=== PATIENT | male | born 1980 | race Caucasian/White ===

== ENCOUNTER 2017-02-17 03:03 | Emergency (ER) | payer SELFPAY ==
[2017-02-17 03:13] VITALS: BP 135/89
[2017-02-17] MEDS ORDERED: Sodium Chloride 0.9% 5 ML Syringe FLUSH PRN (03:23)
--- NOTE | 2017-02-17 04:14 | EDM.PDOC ---
ED HPI GENERAL MEDICAL PROBLEM - General Chief Complaint: Flank Pain Stated Complaint: R FLANK PAIN Time Seen by Provider: 02/17/17 03:43 Source of Information: Reports: Patient History Limitations: Reports: No Limitations - History of Present Illness INITIAL COMMENTS - FREE TEXT/NARRATIVE: Patient presents with pain in right low back/flank for 5 hours that comes and goes frequently. It last a few minutes usually and goes completely away between episodes. He's never had this before and denies unusual heavy lifting or activities. He does do quite a bit of routine lifting at work. He smokes but denies marijuana or other drug use. He says he had Hepatitis A six months ago but thinks it's gone now. - Related Data Allergies Allergy/AdvReac Type Severity Reaction Status Date / Time No Known Drug Allergies Allergy Cannot Verified 02/17/17 03:06 Remember Home Meds: Home Meds . [No Known Home Meds] 02/17/17 [History] Social & Family History - Tobacco Use Smoking Status *Q: Current Every Day Smoker Years of Tobacco use: 20 Packs/Tins Daily: 0.5 Second Hand Smoke Exposure: Yes - Caffeine Use Caffeine Use: Reports: Soda - Alcohol Use Date of Last Drink: 02/16/17 Time of Last Drink: 22:30 - Recreational Drug Use Recreational Drug Use: No ED ROS GENERAL - Review of Systems Review Of Systems: See Below Constitutional: Denies: Fever, Chills HEENT: Denies: Ear Pain, Throat Pain Respiratory: Reports: Cough (chronic dry cough from smoking). Denies: Shortness of Breath Cardiovascular: Denies: Chest Pain GI/Abdominal: Reports: Vomiting (occasionally over last two weeks; last was 18 hours ago). Denies: Abdominal Pain, Constipation, Diarrhea : Denies: Dysuria Musculoskeletal: Reports: No Symptoms Skin: Denies: Cyanosis, Jaundice, Mottled, Pallor, Diaphoresis Neurological: Denies: Confusion, Dizziness, Syncope Psychiatric: Denies: Agitation, Anxiety, Confusion ED EXAM,LOWER BACK PAIN/INJURY - Physical Exam Exam: See Below Exam Limited By: No Limitations General Appearance: Alert, WD/WN, No Apparent Distress Eye Exam: Bilateral Eye: EOMI, Normal Inspection, PERRL Ears: Normal External Exam, Hearing Grossly Normal Nose: Normal Inspection, No Blood Throat/Mouth: Normal Lips, Normal Oropharynx, Normal Voice, No Airway Compromise. No: Normal Teeth (very poor dentition with numerous partially missing teeth) Head: Atraumatic, Normocephalic Neck: Normal Inspection, Supple, Non-Tender, Full Range of Motion Respiratory/Chest: No Respiratory Distress, Lungs Clear, Normal Breath Sounds Cardiovascular: Normal Peripheral Pulses, Regular Rate, Rhythm, No Murmur GI/Abdominal: Soft, Non-Tender, No Organomegaly, Abnormal Bowel Sounds (a little hyperactive). No: Distended, Guarding, Rigid Back Exam: CVA Tenderness (R) (Palpation is tender quite localized to what seems to be superficial muscle slightly inferior but adjacent to posterior right ribcage. This is lateral to paraspinal musculature and seems more superficial than any underlying organs. Nothing unusual evident on the skin.). No: CVA Tenderness (L), Muscle Spasm, Paraspinal Tenderness, Vertebral Tenderness Extremities: Normal Inspection, Normal Range of Motion, No Pedal Edema Neurological: Alert, Normal Gait, No Motor/Sensory Deficits, Oriented x 3 Psychiatric: Anxious Skin Exam: Warm, Dry, Intact, Normal Color, No Rash Course - Vital Signs Last Recorded V/S: Last Vital Signs Temp 98.5 F 02/17/17 03:08 Pulse 85 02/17/17 03:08 Resp 20 02/17/17 03:08 BP 135/89 02/17/17 03:08 Pulse Ox 97 02/17/17 03:08 - Orders/Labs/Meds Orders: Active Orders 24 hr Category Date Time Status BASIC METABOLIC PANEL,BMP [CHEM] Stat Lab 02/17/17 03:22 Ordered CBC WITH AUTO DIFF [HEME] Stat Lab 02/17/17 04:06 Ordered UA W/MICROSCOPIC [URIN] Stat Lab 02/17/17 03:22 Ordered Sodium Chloride 0.9% [Syrex Flush] Med 02/17/17 03:23 Active 5 ml FLUSH Q8HR PRN Saline Lock Insert [OM.PC] Routine Oth 02/17/17 03:23 Ordered Medication Orders Sodium Chloride (Syrex Flush) 5 ml FLUSH Q8HR PRN PRN Reason: Keep Vein Open Meds: Medications Generic Name Dose Route Start Last Admin Trade Name Freq PRN Reason Stop Dose Admin Sodium Chloride 5 ml 02/17/17 03:23 Syrex Flush FLUSH Q8HR PRN Keep Vein Open - Re-Assessments/Exams Free Text/Narrative Re-Assessment/Exam: 02/17/17 04:58 CBC shows elevated lymphocytes in the differential which may be a result of a viral infection with his recent vomiting. He denies any other known viruses recently. Discussed findings and treatment plan. Pt doesn't feel he needs anything for pain management. Pt discharged in stable condition. Departure - Departure Time of Disposition: 04:54 Disposition: Home, Self-Care 01 Condition: Good Clinical Impression: Low back pain Qualifiers: Chronicity: acute Back pain laterality: right Sciatica presence: without sciatica Qualified Code(s): M54.5 - Low back pain - Discharge Information Forms: ED Department Discharge Additional Instructions: 1. Drink 8 cups of water daily and try to avoid activities that aggravate the back pain. 2. You may use Tylenol or Ibuprofen as needed. 3. Follow up with your PCP in a week to recheck CBC lab to see if lymphocytes remain elevated. 4. If worsening follow up sooner with PCP vs ER. - My Orders Last 24 Hours: My Active Orders 02/17/17 03:22 BASIC METABOLIC PANEL,BMP [CHEM] Stat UA W/MICROSCOPIC [URIN] Stat 02/17/17 03:23 Sodium Chloride 0.9% [Syrex Flush] 5 ml FLUSH Q8HR PRN Saline Lock Insert [OM.PC] Routine 02/17/17 04:06 CBC WITH AUTO DIFF [HEME] Stat - Assessment/Plan Last 24 Hours: My Active Orders 02/17/17 03:22 BASIC METABOLIC PANEL,BMP [CHEM] Stat UA W/MICROSCOPIC [URIN] Stat 02/17/17 03:23 Sodium Chloride 0.9% [Syrex Flush] 5 ml FLUSH Q8HR PRN Saline Lock Insert [OM.PC] Routine 02/17/17 04:06 CBC WITH AUTO DIFF [HEME] Stat
[2017-02-17] MEDS ORDERED: Sodium Chloride 0.9% 1,000 ML IV ONE (04:23)
[2017-02-17 04:38] LABS: CHLORIDE,CL 103 mmol/L (98-115); SODIUM,NA 142 mmol/L (136-145)
== END 2017-02-17 05:30 | disposition home or self-care (01) ==
LOC: KA.ED 03:03
DX: M54.5 Low back pain (principal); F17.210 Nicotine dependence, cigarettes, uncomplicated
CPT/HCPCS: 36415; 80053; 81001; 85025; 96360; 99283; J7030